=== PATIENT | male | born 1975 | race Caucasian/White ===

== ENCOUNTER → 2017-06-02 | Outpatient (REF) | LOC: WSOH 07:55 | DX: Z02.89 Encounter for other administrative examinations (principal) ==

== ENCOUNTER → 2022-08-13 | Outpatient (CLI) | payer OTHER | LOC: MHCPAIN 13:28 | DX: M47.892 Other spondylosis, cervical region (principal); M54.2 Cervicalgia; M25.511 Pain in right shoulder; G44.86 Cervicogenic headache; F17.210 Nicotine dependence, cigarettes, uncomplicated | CPT/HCPCS: G0463 ==

== ENCOUNTER → 2022-08-14 | Outpatient (CLI) | payer OTHER | LOC: MHCPAIN 09:16 | DX: M47.812 Spondylosis without myelopathy or radiculopathy, cervical region (principal); M54.2 Cervicalgia; G44.86 Cervicogenic headache ==

== ENCOUNTER → 2022-11-17 | Outpatient (CLI) | payer OTHER | LOC: MHCPAIN 09:22 | DX: M47.812 Spondylosis without myelopathy or radiculopathy, cervical region (principal); M54.2 Cervicalgia; G44.86 Cervicogenic headache | CPT/HCPCS: G0463 ==